=== PATIENT | female | born 1950 | race Caucasian/White ===

== ENCOUNTER → 2016-12-03 17:19 | Outpatient (CLI) | payer MEDICARE | END | disposition home or self-care (01) | LOC: D.MAMMO 15:45 | DX: Z12.31 Encounter for screening mammogram for malignant neoplasm of breast (principal) ==

== ENCOUNTER → 2017-07-08 14:31 | Outpatient (CLI) | payer MEDICARE, MEDICAID | END | disposition home or self-care (01) | LOC: D.MRI 14:31 | DX: M25.561 Pain in right knee (principal) ==

== ENCOUNTER 2017-10-13 15:13 | Observation (INO) | payer MEDICARE, MEDICAID ==
[~2017-10-13] VITALS: Ht 154.9 cm; Wt 59.4 kg
[2017-10-13 16:27] VITALS: BP 150/77; BMI 24.8
[2017-10-13 16:29] LABS: BASOPHILS 0.4 % (0-2); EOSINOPHILS 0 % (0-7); HEMATOCRIT 41.7 % (36.0-48.0); HEMOGLOBIN 14.4 g/dL (12-16); IMMATURE GRANULOCYTES 1.6 % (0-5); LYMPHOCYTES 20.8 % (15-50); MCH 28.3 pg (26.0-34.0); MCHC 34.5 g/dL (31.0-37.0); MCV 82.1 fL (80.0-100.0); MEAN PLATELET VOLUME 9.7 fL (7.4-10.4); MONOCYTES 8.8 % (2-11); NEUTROPHILS 68.4 % (40-80); PLATELET COUNT 201 10x3/uL (130-400); RBC 5.08 10x6/uL (4.00-5.40); RDW 13.4 % (11.5-14.5); WBC 4.9 10x3/uL (4.8-10.8)
[2017-10-13 16:50] LABS: ALBUMIN 3.4 g/dL (3.4-5.0); ALKALINE PHOSPHATASE 280 U/L (46-116); BILIRUBIN - TOTAL 3.02 mg/dL (0.2-1.3); CALC OSMOLALITY 282 mosm/kg (275-300); CALCIUM 8.6 mg/dL (8.5-10.1); CARBON DIOXIDE 36.6 mmol/L (21.0-32.0); CHLORIDE - SERUM 96 mmol/L (98-107); CREATININE - SERUM 0.8 mg/dL (0.6-1.3); GLUCOSE 115 mg/dL (74-106); PROTEIN - SERUM 6.5 g/dL (6.4-8.2); SODIUM 141 mmol/L (136-145); UREA NITROGEN 16 mg/dL (7-18); eGFR NON AFRICAN AMERICAN 75 mL/min (90-120)
[2017-10-13 16:58] LABS: POTASSIUM - SERUM 2.7 mmol/L (3.5-5.1)
[2017-10-13 17:18] LABS: ALT (SGPT) 44416 U/L (10-68)
[2017-10-13 18:32] LABS: ALKALINE PHOSPHATASE 238 U/L (46-116); BILIRUBIN - TOTAL 2.47 mg/dL (0.2-1.3); CALC OSMOLALITY 284 mosm/kg (275-300); CALCIUM 8.3 mg/dL (8.5-10.1); CARBON DIOXIDE 38.6 mmol/L (21.0-32.0); CHLORIDE - SERUM 98 mmol/L (98-107); CREATININE - SERUM 0.8 mg/dL (0.6-1.3); GLUCOSE 121 mg/dL (74-106); PROTEIN - SERUM 6.2 g/dL (6.4-8.2); SODIUM 142 mmol/L (136-145); UREA NITROGEN 15 mg/dL (7-18); eGFR NON AFRICAN AMERICAN 75 mL/min (90-120)
[2017-10-13 18:39] LABS: ALT (SGPT) 3620 U/L (10-68)
[2017-10-13 18:41] LABS: POTASSIUM - SERUM 2.6 mmol/L (3.5-5.1)
[2017-10-13 20:00] VITALS: BP 170/74
[2017-10-13 23:39] LABS: INR 1.24 (0.85-1.17); PROTIME 15.2 SECONDS (11.6-15.0)
[2017-10-13 23:46] LABS: CHOL - HDL RATIO 7.2 ratio (2.3-4.1); LDL-HDL RATIO 3.4 ratio (1.5-3.5)
[2017-10-14] VITALS: BP 154/85
[2017-10-14 04:00] VITALS: BP 181/65
[2017-10-14 05:13] LABS: BASOPHILS 0.8 % (0-2); HEMATOCRIT 35.5 % (36.0-48.0); HEMOGLOBIN 12.2 g/dL (12-16); IMMATURE GRANULOCYTES 3.9 % (0-5); LYMPHOCYTES 30.4 % (15-50); MCHC 34.4 g/dL (31.0-37.0); MCV 81.4 fL (80.0-100.0); MEAN PLATELET VOLUME 9.6 fL (7.4-10.4); MONOCYTES 12.1 % (2-11); NEUTROPHILS 51.8 % (40-80); PLATELET COUNT 175 10x3/uL (130-400); RBC 4.36 10x6/uL (4.00-5.40); RDW 13.5 % (11.5-14.5); WBC 3.9 10x3/uL (4.8-10.8)
[2017-10-14 05:22] LABS: INR 1.32 (0.85-1.17); PROTIME 15.9 SECONDS (11.6-15.0)
[2017-10-14 05:46] LABS: ALBUMIN 2.6 g/dL (3.4-5.0); ALKALINE PHOSPHATASE 200 U/L (46-116); BILIRUBIN - TOTAL 1.98 mg/dL (0.2-1.3); CALCIUM 7.8 mg/dL (8.5-10.1); CARBON DIOXIDE 34.3 mmol/L (21.0-32.0); CHLORIDE - SERUM 102 mmol/L (98-107); CREATININE - SERUM 0.7 mg/dL (0.6-1.3); GLUCOSE 90 mg/dL (74-106); PROTEIN - SERUM 5.6 g/dL (6.4-8.2); SODIUM 143 mmol/L (136-145); eGFR NON AFRICAN AMERICAN 88 mL/min (90-120)
[2017-10-14] MEDS ORDERED: PRINIVIL10 MG PO (05:47)
[2017-10-14] MEDS ORDERED: DESERYL100 MG PO (05:48)
[2017-10-14] MEDS ORDERED: SINGULAIR10 MG PO (05:48)
[2017-10-14] MEDS ORDERED: NEURONTIN 300300 MG PO (05:49)
[2017-10-14] MEDS ORDERED: LIPITOR40 MG PO (05:49)
[2017-10-14] MEDS ORDERED: LINZESS145 MCG (05:50)
[2017-10-14] MEDS ORDERED: COSOPT EYE DROPS5 ML EACH EYE (05:51)
[2017-10-14] MEDS ORDERED: MELATONIN5 MG PO (05:51)
[2017-10-14 06:36] LABS: CALC OSMOLALITY 283 mosm/kg (275-300); UREA NITROGEN 11 mg/dL (7-18)
[2017-10-14 06:37] LABS: ALT (SGPT) 2663 U/L (10-68); POTASSIUM - SERUM 2.5 mmol/L (3.5-5.1)
[2017-10-14 09:13] VITALS: BP 189/70
[2017-10-14 12:33] VITALS: BP 177/81
[2017-10-14 13:33] VITALS: Ht 154.9 cm; Wt 59.4 kg
[2017-10-14 16:47] VITALS: BP 143/89
[2017-10-14 20:00] VITALS: BP 173/74
[2017-10-15] VITALS: BP 191/91
[2017-10-15 05:02] LABS: BASOPHILS 0.2 % (0-2); EOSINOPHILS 2.4 % (0-7); HEMATOCRIT 36.7 % (36.0-48.0); HEMOGLOBIN 12.3 g/dL (12-16); IMMATURE GRANULOCYTES 4.1 % (0-5); LYMPHOCYTES 27.8 % (15-50); MCH 27.6 pg (26.0-34.0); MCHC 33.5 g/dL (31.0-37.0); MCV 82.3 fL (80.0-100.0); MEAN PLATELET VOLUME 9.4 fL (7.4-10.4); MONOCYTES 11.4 % (2-11); NEUTROPHILS 54.1 % (40-80); RBC 4.46 10x6/uL (4.00-5.40); RDW 13.6 % (11.5-14.5)
[2017-10-15 05:17] LABS: PLATELET COUNT 220 10x3/uL (130-400); WBC 5.1 10x3/uL (4.8-10.8)
[2017-10-15 05:29] LABS: ALBUMIN 2.8 g/dL (3.4-5.0); ALKALINE PHOSPHATASE 194 U/L (46-116); CARBON DIOXIDE 31.7 mmol/L (21.0-32.0); CHLORIDE - SERUM 105 mmol/L (98-107); CREATININE - SERUM 0.7 mg/dL (0.6-1.3); GLUCOSE 97 mg/dL (74-106); SODIUM 141 mmol/L (136-145); eGFR NON AFRICAN AMERICAN 88 mL/min (90-120)
[2017-10-15 05:36] LABS: CALC OSMOLALITY 278 mosm/kg (275-300); UREA NITROGEN 6 mg/dL (7-18)
[2017-10-15 05:37] LABS: ALT (SGPT) 1920 U/L (10-68); POTASSIUM - SERUM 2.6 mmol/L (3.5-5.1)
[2017-10-15 06:52] VITALS: BP 190/81
[2017-10-15 09:45] VITALS: BP 175/77
[2017-10-15 12:08] VITALS: BP 154/77
[2017-10-15 15:23] LABS: HEPATITIS C ANTIBODY 0.2 (0.0-0.9)
[2017-10-15 16:41] VITALS: BP 168/74
[2017-10-15 20:00] VITALS: BP 186/78
[2017-10-15 21:08] LABS: EBV - EARLY ANTIGEN AB IGG 11.7 U/mL (0.0-8.9); EBV - NUCLEAR ANTIGEN AB IGG 31.5 U/mL (0.0-17.9); EBV VIRAL CAPSID AB IGM <36.0 U/mL (0.0-35.9)
[2017-10-16] VITALS: BP 174/96
[2017-10-16 04:00] VITALS: BP 162/73
[2017-10-16 04:29] LABS: BASOPHILS 0.2 % (0-2); EOSINOPHILS 2.3 % (0-7); HEMATOCRIT 38.2 % (36.0-48.0); HEMOGLOBIN 12.7 g/dL (12-16); IMMATURE GRANULOCYTES 2.8 % (0-5); MCH 27.9 pg (26.0-34.0); MCHC 33.2 g/dL (31.0-37.0); MEAN PLATELET VOLUME 10.3 fL (7.4-10.4); MONOCYTES 6.4 % (2-11); NEUTROPHILS 68.3 % (40-80); PLATELET COUNT 243 10x3/uL (130-400); RBC 4.55 10x6/uL (4.00-5.40); RDW 14.1 % (11.5-14.5)
[2017-10-16 04:30] LABS: WBC 8.5 10x3/uL (4.8-10.8)
[2017-10-16 04:54] LABS: ALBUMIN 2.6 g/dL (3.4-5.0); ALKALINE PHOSPHATASE 164 U/L (46-116); CALCIUM 8.6 mg/dL (8.5-10.1); CARBON DIOXIDE 27.7 mmol/L (21.0-32.0); CHLORIDE - SERUM 108 mmol/L (98-107); CREATININE - SERUM 0.7 mg/dL (0.6-1.3); GLUCOSE 139 mg/dL (74-106); POTASSIUM - SERUM 3.2 mmol/L (3.5-5.1); PROTEIN - SERUM 5.7 g/dL (6.4-8.2); SODIUM 143 mmol/L (136-145); eGFR NON AFRICAN AMERICAN 88 mL/min (90-120)
[2017-10-16 04:57] LABS: ALT (SGPT) 1270 U/L (10-68); CALC OSMOLALITY 283 mosm/kg (275-300); UREA NITROGEN 3 mg/dL (7-18)
[2017-10-16] MEDS ORDERED: TAMIFLU75 MG PO (07:56)
[2017-10-16] MEDS ORDERED: LEVAQUIN500 MG PO (07:56)
[2017-10-16] MEDS ORDERED: NORVASC2.5 MG PO (07:58)
[2017-10-16 08:38] VITALS: BP 147/65
[2017-10-16 12:09] VITALS: BP 117/64
[2017-10-16 16:20] VITALS: BP 153/64
== END 2017-10-16 18:06 | disposition home or self-care (01) ==
LOC: D.MS 15:13 → OBSVTIME 15:16 → D.MS 10-16 18:06
PROVIDERS: Internal Medicine Gastroenterology; ADMIT Family Medicine
DX: J11.00 Influenza due to unidentified influenza virus with unspecified type of pneumonia (principal); E80.6 Other disorders of bilirubin metabolism; E86.0 Dehydration; K21.9 Gastro-esophageal reflux disease without esophagitis

== ENCOUNTER → 2018-04-20 08:00 | Outpatient (CLI) | payer MEDICARE, MEDICAID ==
[2017-10-14 13:33] VITALS: BMI 24.7
[~2018-04-20 08:00] MED LIST: COSOPT EYE DROPS5 ML EACH EYE; DESERYL100 MG PO; LEVAQUIN500 MG PO; LINZESS145 MCG; LIPITOR40 MG PO; MELATONIN5 MG PO; NEURONTIN 300300 MG PO; NORVASC2.5 MG PO; PRINIVIL10 MG PO; SINGULAIR10 MG PO; TAMIFLU75 MG PO
[2018-04-20 10:38] LABS: ALBUMIN 3.3 g/dL (3.4-5.0); BILIRUBIN - DIRECT 0.12 mg/dL (0.00-0.30); BILIRUBIN - INDIRECT 0.28 mg/dL (0.00-1.00); BILIRUBIN - TOTAL 0.4 mg/dL (0.2-1.3)
== END | disposition home or self-care (01) ==
LOC: D.US 04-15 09:00 → D.LAB 04-15 10:00 → D.US 08:00
PROVIDERS: Internal Medicine Gastroenterology
DX: K76.0 Fatty (change of) liver, not elsewhere classified (principal)

== ENCOUNTER → 2018-06-11 13:59 | Outpatient (CLI) | payer MEDICARE, MEDICAID ==
[2017-10-14 13:33] VITALS: BMI 24.7
== END | disposition home or self-care (01) ==
LOC: D.CT 10:30
DX: R10.11 Right upper quadrant pain (principal)

== ENCOUNTER → 2018-09-15 10:50 | Outpatient (CLI) | payer MEDICARE, MEDICAID ==
[2017-10-14 13:33] VITALS: BMI 24.7
== END | disposition home or self-care (01) ==
LOC: D.CT 10:50
DX: R93.89 Abnormal findings on diagnostic imaging of other specified body structures (principal)

== ENCOUNTER → 2018-11-19 12:54 | Outpatient (CLI) | payer MEDICARE, MEDICAID ==
[2017-10-14 13:33] VITALS: BMI 24.7
[2018-11-19 13:41] LABS: ALBUMIN 3.3 g/dL (3.4-5.0); BILIRUBIN - DIRECT 0.17 mg/dL (0.00-0.30); BILIRUBIN - INDIRECT 0.29 mg/dL (0.00-1.00); BILIRUBIN - TOTAL 0.46 mg/dL (0.2-1.3); PROTEIN - SERUM 6.7 g/dL (6.4-8.2)
== END | disposition home or self-care (01) ==
LOC: D.LAB 10-22 09:30 → D.US 10-22 09:30 → D.LAB 10-22 10:00
PROVIDERS: Internal Medicine Gastroenterology
DX: K76.0 Fatty (change of) liver, not elsewhere classified (principal)

== ENCOUNTER → 2019-05-05 08:49 | Outpatient (CLI) | payer MEDICARE, MEDICAID ==
[2017-10-14 13:33] VITALS: BMI 24.7
[2019-05-05 09:45] LABS: ALBUMIN 3.3 g/dL (3.4-5.0); BILIRUBIN - DIRECT 0.26 mg/dL (0.00-0.30); BILIRUBIN - INDIRECT 0.51 mg/dL (0.00-1.00); BILIRUBIN - TOTAL 0.77 mg/dL (0.2-1.3); PROTEIN - SERUM 7.3 g/dL (6.4-8.2)
== END | disposition home or self-care (01) ==
LOC: D.US 08:49
PROVIDERS: ATTEND Internal Medicine Gastroenterology
DX: K76.0 Fatty (change of) liver, not elsewhere classified (principal)

== ENCOUNTER 2019-05-16 17:19 | Inpatient (IN) | payer MEDICARE, MEDICAID ==
[~2019-05-16] VITALS: Ht 154.9 cm; Wt 63.2 kg
[2019-05-16 18:17] LABS: BASOPHILS 0.2 % (0-2); EOSINOPHILS 1.2 % (0-7); HEMATOCRIT 37.1 % (36.0-48.0); HEMOGLOBIN 12.6 g/dL (12-16); IMMATURE GRANULOCYTES 0.4 % (0-5); LYMPHOCYTES 13.9 % (15-50); MCV 79.4 fL (80.0-100.0); MEAN PLATELET VOLUME 8.8 fL (7.4-10.4); MONOCYTES 4.9 % (2-11); NEUTROPHILS 79.4 % (40-80); PLATELET COUNT 258 10x3/uL (130-400); RBC 4.67 10x6/uL (4.00-5.40); RDW 14.2 % (11.5-14.5)
[2019-05-16 18:33] VITALS: BP 149/65; Ht 154.9 cm; Wt 63.2 kg
[2019-05-16 18:43] LABS: ALBUMIN 3.1 g/dL (3.4-5.0); ANION GAP 9.9 mmol/L (8-16); BILIRUBIN - TOTAL 0.68 mg/dL (0.2-1.3); CALCIUM 8.3 mg/dL (8.5-10.1); CARBON DIOXIDE 32.8 mmol/L (21.0-32.0); CREATININE - SERUM 0.9 mg/dL (0.6-1.3); PROTEIN - SERUM 7.1 g/dL (6.4-8.2); THYROID STIMULATING HORMONE 4.23 uIU/mL (0.36-3.74)
[2019-05-16 18:50] LABS: POTASSIUM - SERUM 2.7 mmol/L (3.5-5.1)
[2019-05-16 20:19] VITALS: BP 142/60
--- NOTE | 2019-05-16 22:45 | NUR ---
IV STARTED BY TOR IN PT'S RT FOREARM.22G
[2019-05-17 00:29] VITALS: BP 150/59
--- NOTE | 2019-05-17 01:03 | NUR ---
I have reviewed this patient and I concur with the Shift Assessment completed by the Licensed Practical Nurse today this shift.
--- NOTE | 2019-05-17 02:42 | NUR ---
REST QUIETLY IN BED. BED LOW CALL LIGHT IN REACH.
[2019-05-17 04:31] VITALS: BP 169/66
[2019-05-17 06:22] LABS: BASOPHILS 0.1 % (0-2); EOSINOPHILS 0.9 % (0-7); HEMATOCRIT 34.3 % (36.0-48.0); HEMOGLOBIN 11.5 g/dL (12-16); IMMATURE GRANULOCYTES 0.7 % (0-5); LYMPHOCYTES 13.3 % (15-50); MCH 26.5 pg (26.0-34.0); MCHC 33.5 g/dL (31.0-37.0); MEAN PLATELET VOLUME 9.3 fL (7.4-10.4); MONOCYTES 3.8 % (2-11); NEUTROPHILS 81.2 % (40-80); PLATELET COUNT 241 10x3/uL (130-400); RBC 4.34 10x6/uL (4.00-5.40); RDW 14.1 % (11.5-14.5); WBC 10.6 10x3/uL (4.8-10.8)
[2019-05-17 06:50] LABS: ALBUMIN 2.8 g/dL (3.4-5.0); ANION GAP 8.5 mmol/L (8-16); BILIRUBIN - TOTAL 0.85 mg/dL (0.2-1.3); CARBON DIOXIDE 32.4 mmol/L (21.0-32.0); CREATININE - SERUM 0.9 mg/dL (0.6-1.3); MAGNESIUM - SERUM 1.7 mg/dL (1.8-2.4); PHOSPHOROUS 2.6 mg/dL (2.5-4.9); PROTEIN - SERUM 6.5 g/dL (6.4-8.2)
[2019-05-17 06:56] LABS: POTASSIUM - SERUM 2.9 mmol/L (3.5-5.1)
[2019-05-17 08:32] VITALS: BP 165/64
--- NOTE | 2019-05-17 09:00 | NUR ---
ASSESSMENT PER FLOW SHEET. PT IS WITHOUT DISTRESS.FALL PREVENTION IN PLACE WITH BED ALARM.MONITOR FOR NEEDS
[2019-05-17 10:19] LABS: CKMB 1.3 U/L (0.0-3.6); CREATINE KINASE 112 UL (21-215); TROPONIN-I < 0.017 ng/mL (0.000-0.060)
[2019-05-17 10:31] LABS: POTASSIUM - SERUM 2.9 mmol/L (3.5-5.1)
[2019-05-17 17:13] LABS: CKMB 1.6 U/L (0.0-3.6); CREATINE KINASE 143 UL (21-215); TROPONIN-I 0.019 ng/mL (0.000-0.060)
[2019-05-17 17:33] VITALS: BP 152/65
--- NOTE | 2019-05-17 17:40 | NUR ---
OT NOTE: PT COMPLETED DYNAMIC STANDING BALANCE WITH SBA. PT COMPLETED GROOMING WITH SET UP. THANK YOU, BALAJI ZAVALETA
[2019-05-17 18:42] LABS: APPEARANCE CLEAR (CLEAR); BILIRUBIN NEGATIVE (NEGATIVE); COLOR YELLOW (YELLOW); GLUCOSE NEGATIVE (NEGATIVE); KETONE NEGATIVE (NEGATIVE); NITRITE NEGATIVE (NEGATIVE); PROTEIN NEGATIVE (NEGATIVE); UROBILINOGEN NORMAL (NORMAL)
[2019-05-17 18:43] LABS: RED CELLS - URINE OCC /hpf (0-5); WHITE CELLS - URINE OCC /hpf (0-5)
--- NOTE | 2019-05-17 18:56 | NUR ---
REMAINS WITHOUT DISTRESS,WITHOUT CHANGE.CONT PLAN OF CARE
--- NOTE | 2019-05-17 19:15 | NUR ---
A&O X 4. REPORTS BLINDNESS IN RIGHT EYE. REPORTS OCCASIONAL HEADACHE, BUT STATES SHE CURRENTLY FEELS FINE. DENIES NEEDS AT THIS TIME. WILL CONTINUE TO MONITOR.
[2019-05-17 20:19] VITALS: BP 157/65
[2019-05-18 00:09] LABS: CKMB 2.2 U/L (0.0-3.6); CREATINE KINASE 186 UL (21-215); TROPONIN-I 0.033 ng/mL (0.000-0.060)
[2019-05-18 00:58] VITALS: BP 159/79
--- NOTE | 2019-05-18 03:28 | NUR ---
I have reviewed this patient and I concur with the Shift Assessment completed by the Licensed Practical Nurse today this shift.
[2019-05-18 04:54] VITALS: BP 159/59
[2019-05-18 06:31] LABS: BASOPHILS 0.2 % (0-2); EOSINOPHILS 1.1 % (0-7); HEMATOCRIT 34.7 % (36.0-48.0); HEMOGLOBIN 11.7 g/dL (12-16); IMMATURE GRANULOCYTES 1.2 % (0-5); LYMPHOCYTES 14.9 % (15-50); MCHC 33.7 g/dL (31.0-37.0); MCV 80.1 fL (80.0-100.0); MONOCYTES 5.1 % (2-11); NEUTROPHILS 77.5 % (40-80); PLATELET COUNT 241 10x3/uL (130-400); RBC 4.33 10x6/uL (4.00-5.40); RDW 14.6 % (11.5-14.5); WBC 8.8 10x3/uL (4.8-10.8)
[2019-05-18 07:04] LABS: ALBUMIN 2.8 g/dL (3.4-5.0); ALKALINE PHOSPHATASE 112 U/L (46-116); ALT (SGPT) 25 U/L (10-68); BILIRUBIN - TOTAL 0.67 mg/dL (0.2-1.3); CALCIUM 7.8 mg/dL (8.5-10.1); CARBON DIOXIDE 26.3 mmol/L (21.0-32.0); CHLORIDE - SERUM 109 mmol/L (98-107); CHOL - HDL RATIO 3.6 ratio (2.3-4.1); CHOLESTEROL, TOTAL 131 mg/dL (0-200); CREATININE - SERUM 0.8 mg/dL (0.6-1.3); GLUCOSE 129 mg/dL (74-106); HDL CHOLESTEROL 36 mg/dL (32-96); LDL CHOLESTEROL 69 mg/dL (0-100); LDL-HDL RATIO 1.9 ratio (1.5-3.5); MAGNESIUM - SERUM 1.6 mg/dL (1.8-2.4); PROTEIN - SERUM 6.4 g/dL (6.4-8.2); SODIUM 144 mmol/L (136-145); TRIGLYCERIDE 134 mg/dL (30-200); eGFR NON AFRICAN AMERICAN 75 mL/min (90-120)
[2019-05-18 07:07] LABS: CALC OSMOLALITY 285 mosm/kg (275-300); PHOSPHOROUS 1.8 mg/dL (2.5-4.9); POTASSIUM - SERUM 3.5 mmol/L (3.5-5.1); UREA NITROGEN 4 mg/dL (7-18)
[2019-05-18 08:58] VITALS: BP 181/84
[2019-05-18] MEDS ORDERED: ASPIRIN81 MG PO (12:11)
--- NOTE | 2019-05-18 13:09 | MORECARE ---
CASE MANAGEMENT DISCHARGE SUMMARY PATIENT: AGNES MELENDEZ LEE ANN UNIT: [id number] ADM DATE: 05/17/19 AGE: 69 : 48 SEX: F ROOM/BED: D.2227 AUTHOR: KARINE KAT PHYSICIAN: REFERRING PHYSICIAN: BERNY VIGIL DO DATE OF SERVICE: 05/18/19 Discharge Plan Patient Name: AGNES [facility]ELENDEZ [facility] [facility] 1950 Planned Disposition: Home Anticipated Discharge Date: 05/18/19 Discharge Date: Expected LOS: 1 Initial Reviewer: [email or web address] Initial Review Date: 05/18/2019 Generated: 05/18/19 2:09 pm Patient Name: AGNES MELENDEZ Page [id number] at 1309 All edits/amendments must be made on the electronic document DICTATION DATE: 05/18/19 1308 MAINSPRING FORMER: LOPEZ 05/18/19 1308 RPT#: [id number] DC DATE: STATUS: ADM IN [facility] [address] [place] [address] END OF REPORT
--- NOTE | 2019-05-18 13:16 | MORECARE ---
CASE MANAGEMENT DISCHARGE SUMMARY PATIENT: AGNES MELENDEZ UNIT: [id number] ADM DATE: 05/17/19 AGE: 69 : 48 SEX: F ROOM/BED: D.2227 AUTHOR: NORTH,DOC PHYSICIAN: REFERRING PHYSICIAN: BERNY VIGIL DO DATE OF SERVICE: 05/18/19 Discharge Plan Patient Name: AGNES MELENDEZ Facility: [facility]:[place] : 1950 Planned Disposition: Home Anticipated Discharge Date: 05/18/19 Discharge Date: Expected LOS: 1 Initial Reviewer: [email or web address] Initial Review Date: 05/18/2019 Generated: 05/18/19 2:16 pm Comments DCP- Discharge Planning Updated by [email or web address]: Lesvia Ramírez on 05/18/19 12:[address] Patient Name: AGNES MELENDEZ Admission Status: Urgent Accout number: [id number] Admission Date: 05-17-2019 : 1950 Admission Diagnosis: Attending: BERNY VIGIL Current LOS: 1 Anticipated DC Date: 05-18-2019 Planned Disposition: Home Primary Insurance: [employer] CHOICE [facility] CM met with patient to complete initial dc planning assessment. CM educated patient on the CM role and verbal consent given by patient to complete assessment. Patient lives at the [facility], alone. At discharge patient plans to return and feels this is a safe discharge. CM discussed availability of home health, rehab services, and medical equipment. Patient denied known discharge needs at this time. She states her son will pick her up today. She no longer drives, but takes the bus or [employer] transportation when needed. CM will continue to follow and will assist as needed with dc plans/needs. Discharge Planning Comments: Fish Bait Picker: Lesvia Ramírez DCPIA - Discharge Planning Initial Assessment Updated by [email or web address]: Lesvia Ramírez on 05/18/19 1:09 pm * Is the patient Alert and Oriented? Yes * How many steps to enter\exit or inside your home? 0/elevator * PCP Dr. Vigil * Preadmission Environment Home Alone * ADLs Independent * Equipment Cane Other * Other Equipment blood pressure machine * List name and contact numbers for known caregivers / representatives who currently or will assist patient after discharge: Paul Sanchez - violeta - [phone] * Verbal permission to speak to the caregivers and representatives has been obtained from the patient. Yes * Community resources currently utilized None * Additional services required to return to the preadmission environment? No * Can the patient safely return to the preadmission environment? Yes * Has this patient been hospitalized within the prior 30 days at any hospital? No Last DP export: 05/18/19 12:09 p Patient Name: AGNES MELENDEZ Page [id number] at 1316 All edits/amendments must be made on the electronic document DICTATION DATE: 05/18/19 131 SIDEWALK REPAIRER: LOPEZ 05/18/19 1315 RPT#: [id number] DC DATE: STATUS: ADM IN [facility] [address] [place] [address] END OF REPORT
--- NOTE | 2019-05-18 15:12 | NUR ---
OT NOTE: PT PERFORMING WELL. ABLE TO PERFORM FULL SHOWER AFTER SET UP OF TOWELS AND TOILETRIES. STANDING BALANCE GOOD WHEN DRYING OFF; GROOMING INDEP FOLLOWING SHOWER. IN ROOM AMBULATION WITHOUT ASSIST. GOOD BALANCE NOTED. DANNY GIORDANO, OTR/L
--- NOTE | 2019-05-20 16:49 | MORECARE ---
CASE MANAGEMENT DISCHARGE SUMMARY PATIENT: AGNES MELENDEZ UNIT: [id number] ADM DATE: 05/17/19 AGE: 69 : 48 SEX: F ROOM/BED: D.2227 AUTHOR: NORTH,DOC PHYSICIAN: REFERRING PHYSICIAN: BERNY VIGIL DO DATE OF SERVICE: 05/20/19 Discharge Plan Patient Name: AGNES MELENDEZ Facility: [facility]:[place] : 1950 Planned Disposition: Home Anticipated Discharge Date: 05/18/19 Discharge Date: 05/18/2019 Expected LOS: 1 Initial Reviewer: [email or web address] Initial Review Date: 05/18/2019 Generated: 05/20/19 5:49 pm Comments DCP- Discharge Planning Updated by [email or web address]: Lesvia Ramírez on 05/18/19 12:[address] Patient Name: AGNES MELENDEZ Admission Status: Urgent Accout number: [id number] Admission Date: 05-17-2019 : 1950 Admission Diagnosis: Attending: BERNY VIGIL Current LOS: 1 Anticipated DC Date: 05-18-2019 Planned Disposition: Home Primary Insurance: [employer] CHOICE [facility] CM met with patient to complete initial dc planning assessment. CM educated patient on the CM role and verbal consent given by patient to complete assessment. Patient lives at the [facility], alone. At discharge patient plans to return and feels this is a safe discharge. CM discussed availability of home health, rehab services, and medical equipment. Patient denied known discharge needs at this time. She states her son will pick her up today. She no longer drives, but takes the bus or [place] transportation when needed. CM will continue to follow and will assist as needed with dc plans/needs. Discharge Planning Comments: Sales Representative Health Insurance: Lesvia Ramírez DCPIA - Discharge Planning Initial Assessment Updated by [email or web address]: Lesvia Ramírez on 05/18/19 1:09 pm * Is the patient Alert and Oriented? Yes * How many steps to enter\exit or inside your home? 0/elevator * PCP Dr. Vigil * Preadmission Environment Home Alone * ADLs Independent * Equipment Cane Other * Other Equipment blood pressure machine * List name and contact numbers for known caregivers / representatives who currently or will assist patient after discharge: Paul Sanchez - violeta - [phone] * Verbal permission to speak to the caregivers and representatives has been obtained from the patient. Yes * Community resources currently utilized None * Additional services required to return to the preadmission environment? No * Can the patient safely return to the preadmission environment? Yes * Has this patient been hospitalized within the prior 30 days at any hospital? No Last DP export: 05/18/19 12:16 p Patient Name: AGNES MELENDEZ Page 17573 at 1649 All edits/amendments must be made on the electronic document DICTATION DATE: 05/20/191648 RV SERVICER: LOPEZ 05/20/191648 RPT#: [id number] DC DATE:05/18/19 STATUS: DIS IN [facility] [address] [place] [address] END OF REPORT
== END 2019-05-18 15:08 | disposition home or self-care (01) | DRG 103 ==
LOC: D.MS 17:19 → OBSVTIME 17:20 → D.MS 05-17 12:51
PROVIDERS: Emergency Medicine; ADMIT Family Medicine; ATTEND Family Medicine
DX: R51 Headache (principal); E86.0 Dehydration; E87.6 Hypokalemia; E83.42 Hypomagnesemia; K21.9 Gastro-esophageal reflux disease without esophagitis; J45.909 Unspecified asthma, uncomplicated; M54.5 Low back pain

== ENCOUNTER 2019-08-04 10:00 | Outpatient (CLI) | payer MEDICARE, MEDICAID ==
[2019-05-16 18:33] VITALS: BMI 26.3
[~2019-08-04 10:00] MED LIST changes: +ASPIRIN81 MG PO
== END 2019-08-04 11:00 | disposition home or self-care (01) ==
LOC: D.MAMMO 10:00
PROVIDERS: ATTEND Family Medicine
DX: Z12.31 Encounter for screening mammogram for malignant neoplasm of breast (principal)

== ENCOUNTER 2019-11-08 19:30 | Outpatient (CLI) | payer MEDICARE, MEDICAID ==
[2019-05-16 18:33] VITALS: BMI 26.3
== END 2019-11-08 23:59 | disposition home or self-care (01) ==
LOC: D.MAMMO 19:30
PROVIDERS: ATTEND Family Medicine
DX: R92.8 Other abnormal and inconclusive findings on diagnostic imaging of breast (principal)

== ENCOUNTER → 2019-11-09 10:03 | Outpatient (CLI) | payer MEDICARE, MEDICAID ==
[2019-05-16 18:33] VITALS: BMI 26.3
[2019-11-09 11:47] LABS: ALBUMIN 3.1 g/dL (3.4-5.0); BILIRUBIN - DIRECT 0.05 mg/dL (0.00-0.30); BILIRUBIN - INDIRECT 0.25 mg/dL (0.00-1.00); BILIRUBIN - TOTAL 0.3 mg/dL (0.2-1.3); PROTEIN - SERUM 6.9 g/dL (6.4-8.2)
== END | disposition home or self-care (01) ==
LOC: D.LAB 10:03 → D.US 10:30
PROVIDERS: ATTEND Internal Medicine Gastroenterology
DX: K76.0 Fatty (change of) liver, not elsewhere classified (principal)

== ENCOUNTER 2020-01-21 18:02 | Emergency (ER) | payer MEDICARE, MEDICAID ==
[~2020-01-21] VITALS: Ht 154.9 cm; Wt 6.1 kg
[2020-01-21 18:06] VITALS: Ht 154.9 cm; Wt 6.1 kg
[2020-01-21 19:06] VITALS: BP 125/48
== END 2020-01-21 19:08 | disposition home or self-care (01) ==
LOC: D.ER 18:02
DX: S63.501A Unspecified sprain of right wrist, initial encounter (principal); S46.911A Strain of unspecified muscle, fascia and tendon at shoulder and upper arm level, right arm, initial encounter; X58.XXXA Exposure to other specified factors, initial encounter; M19.91 Primary osteoarthritis, unspecified site; M54.9 Dorsalgia, unspecified

== ENCOUNTER 2020-03-27 08:00 | Inpatient (IN) | payer MEDICARE, MEDICAID ==
[~2020-03-27] VITALS: Ht 154.9 cm; Wt 62.4 kg
[2020-03-27 13:26] VITALS: Ht 154.9 cm; Wt 62.4 kg
[2020-03-30 09:32] VITALS: BP 163/50
[2020-03-30] MEDS ORDERED: BACTRIM DS TAB1 EAC1 PO (11:58)
== END 2020-03-30 14:40 | disposition home or self-care (01) | DRG 122 ==
LOC: D.ER 08:00 → D.M2 10:25
PROVIDERS: ADMIT Emergency Medicine; ATTEND Emergency Medicine
DX: H05.011 Cellulitis of right orbit (principal); D64.9 Anemia, unspecified; H40.9 Unspecified glaucoma; H26.9 Unspecified cataract; I10 Essential (primary) hypertension; G62.9 Polyneuropathy, unspecified; H04.301 Unspecified dacryocystitis of right lacrimal passage; B95.61 Methicillin susceptible Staphylococcus aureus infection as the cause of diseases classified elsewhere

== ENCOUNTER → 2020-05-09 08:57 | Outpatient (CLI) | payer MEDICARE, MEDICAID ==
[2020-03-27 13:26] VITALS: BMI 26.5
[~2020-05-09 08:57] MED LIST changes: +BACTRIM DS TAB1 EAC1 PO
--- NOTE | 2020-05-11 12:30 | EC ---
PATIENT:AGNES MELENDEZ DATE OF SERVICE: 05/09/20 SEX: F MEDICAL RECORD: [id number] DATE OF : [birth year] LOCATION:[facility] AGE OF PATIENT: 70 ADMISSION DATE: 05/09/20 REFERRING PHYSICIAN: INTERPRETING PHYSICIAN: SAMMI ORDONEZ MD ECHOCARDIOGRAM REPORT ECHO CHARGES 4 ECHO COMPLETE Date: 05/09/20 CLINICAL DIAGNOSIS: MENDEZ ECHOCARDIOGRAPHIC MEASUREMENTS (adult normal given) AC root (d.<3.7cm) 2.6 cm LV Septum d (<1.2 cm> 0.6 cm Valve Excursion 1.7 cm LV Septum (systole) 1.2 cm Left Atria (s.<4.0cm> 3.0 cm LVPW d(<1.2cm) 0.9 cm RV (d.<2.3cm) 2.6 cm LVPW (sytole) 1.2 cm LV diastole(<5.6CM) 5.4 cm MV E-F(>70mm/sec) cm LV systole 3.7 cm LVOT Diameter 1.7 cm MV exc.(>10mm) cm Est.ejection fraction (50-75%) % DOPPLER: LVIT cm/sec A 97 cm/sec E 101 cm/sec LA cm/sec RVSP 28.4 mmHg LVOT 73 cm/sec AOP1/2T m/s Asc. Ao 93 cm/sec RVOT 54 cm/sec RA cm/sec PA 62 cm/sec AV Gradient Peak 3.5 mmHg AV Mean 2.0 mmHg AV Area 2.0 cm MV Gradient Peak 4.9 mmHg MV Mean 1.9 mmHg MV Area cm COMMENTS: Weigher Production: Ml [facility] Motor Coach Tour Operator: 3 Dr. Darling TAPE# PACS Pericardial Effusion N DATE OF SERVICE: Adequate 2D, color flow imaging, spectral Doppler, and M-Mode. No LVH. LV internal dimensions are normal. Wall motion is normal. EF is greater than or equal to 55%. Aortic valve is tricuspid. No evidence of stenosis by Doppler interrogation. Left atrium is normal. Mitral valve shows no prolapse. Trace MR. Right-sided chambers are grossly normal. Trace TR. TRANSINT:[id number] Voice Confirmation ID: [id number] DOCUMENT ID: [id number] ECHOCARDIOGRAM REPORT [id number] AGNES MELENDEZ SAMMI ORDONEZ MD at 1230 CC: [id number] DICTATION DATE: 05/10/20 1409 PODIATRIC MEDICINE DOCTOR: 05/10/20 1621 DEP CLI 05/09/20 [id number] [place] [address]
== END | disposition home or self-care (01) ==
LOC: D.ECHO 08:57
PROVIDERS: ATTEND Family Medicine
DX: R06.09 Other forms of dyspnea (principal)

== ENCOUNTER 2020-06-25 13:15 | Emergency (ER) | payer MEDICARE, MEDICAID ==
[~2020-06-25] VITALS: Ht 154.9 cm; Wt 58.6 kg
[2020-06-25 13:16] VITALS: Ht 154.9 cm; Wt 58.6 kg
[2020-06-25 14:25] LABS: CALC OSMOLALITY 276 mosm/kg (275-300); CALCIUM 8.7 mg/dL (8.5-10.1); CHLORIDE - SERUM 104 mmol/L (98-107); CREATININE - SERUM 1.1 mg/dL (0.6-1.3); GLUCOSE 110 mg/dL (74-106); POTASSIUM - SERUM 3.1 mmol/L (3.5-5.1); SODIUM 139 mmol/L (136-145); UREA NITROGEN 8 mg/dL (7-18); eGFR NON AFRICAN AMERICAN 52 mL/min (90-120)
[2020-06-25 14:35] LABS: ALBUMIN 3.3 g/dL (3.4-5.0); ALKALINE PHOSPHATASE 133 U/L (30-120); ALT (SGPT) 22 U/L (10-68); AMYLASE - SERUM 30 U/L (25-115); BILIRUBIN - TOTAL 0.48 mg/dL (0.2-1.3); LIPASE 85 U/L (73-393); PROTEIN - SERUM 7.4 g/dL (6.4-8.2); TROPONIN-I < 0.017 ng/mL (0.000-0.060)
[2020-06-25 14:43] LABS: BASOPHILS 0.4 % (0-2); EOSINOPHILS 0.6 % (0-7); HEMATOCRIT 36.9 % (36.0-48.0); HEMOGLOBIN 11.9 g/dL (12-16); IMMATURE GRANULOCYTES 0.6 % (0-5); LYMPHOCYTES 10.9 % (15-50); MCH 25.8 pg (26.0-34.0); MCHC 32.2 g/dL (31.0-37.0); MCV 79.9 fL (80.0-100.0); MEAN PLATELET VOLUME 8.8 fL (7.4-10.4); MONOCYTES 5.1 % (2-11); NEUTROPHILS 82.4 % (40-80); RBC 4.62 10x6/uL (4.00-5.40); RDW 15.5 % (11.5-14.5); WBC 10.9 10x3/uL (4.8-10.8)
[2020-06-25 15:01] LABS: PLATELET COUNT 338 10x3/uL (130-400)
[2020-06-25 17:05] LABS: BILIRUBIN NEGATIVE (NEGATIVE); KETONE NEGATIVE (NEGATIVE); NITRITE NEGATIVE (NEGATIVE); UROBILINOGEN NORMAL (NORMAL)
[2020-06-25 17:06] LABS: BACTERIA MODERATE /hpf (NONE SEEN); EPITHELIAL CELLS 0-5 /hpf (0-5); RED CELLS - URINE OCC /hpf (0-5)
[2020-06-25] MEDS ORDERED: MACROBID100 MG PO (17:10)
[2020-06-25] MEDS ORDERED: KEFLEX500 MG PO (17:10)
[2020-06-25] MEDS ORDERED: ZOFRAN ODT4 MG/UDTAB PO (17:14)
[2020-06-25 17:23] VITALS: BP 135/56
== END 2020-06-25 17:23 | disposition home or self-care (01) ==
LOC: D.ER 13:15
PROVIDERS: Emergency Medicine
DX: R11.2 Nausea with vomiting, unspecified (principal); E87.6 Hypokalemia; N39.0 Urinary tract infection, site not specified; I10 Essential (primary) hypertension; J45.909 Unspecified asthma, uncomplicated; G62.9 Polyneuropathy, unspecified

== ENCOUNTER → 2020-07-23 11:00 | Outpatient (CLI) | payer MEDICARE, MEDICAID ==
[2020-06-25 13:16] VITALS: BMI 24.4
[~2020-07-23 11:00] MED LIST changes: +KEFLEX500 MG PO; +MACROBID100 MG PO; +ZOFRAN ODT4 MG/UDTAB PO
== END | disposition home or self-care (01) ==
LOC: D.US 11:00
PROVIDERS: ATTEND Family Medicine
DX: R74.8 Abnormal levels of other serum enzymes (principal)

== ENCOUNTER → 2020-12-25 10:23 | Outpatient (CLI) | payer MEDICARE, MEDICAID ==
[2020-06-25 13:16] VITALS: BMI 24.4
[2020-12-25 11:18] LABS: ALBUMIN 2.5 g/dL (3.4-5.0); BILIRUBIN - DIRECT 0.15 mg/dL (0.00-0.30); BILIRUBIN - INDIRECT 0.29 mg/dL (0.00-1.00); BILIRUBIN - TOTAL 0.44 mg/dL (0.2-1.3); PROTEIN - SERUM 6.3 g/dL (6.4-8.2)
== END | disposition home or self-care (01) ==
LOC: D.LAB 10:15 → D.US 10:30
PROVIDERS: ATTEND Internal Medicine Gastroenterology
DX: K76.0 Fatty (change of) liver, not elsewhere classified (principal)

== ENCOUNTER 2021-01-05 14:51 | Emergency (ER) | payer MEDICARE, MEDICAID ==
[~2021-01-05] VITALS: Ht 154.9 cm; Wt 52.3 kg
[2021-01-05 14:56] VITALS: Ht 154.9 cm; Wt 52.3 kg
[2021-01-05] MEDS ORDERED: TORADOL10 MG PO (16:25)
[2021-01-05 16:34] VITALS: BP 155/63
== END 2021-01-05 18:37 | disposition home or self-care (01) ==
LOC: D.ER 14:51
DX: S00.93XA Contusion of unspecified part of head, initial encounter (principal); S46.912A Strain of unspecified muscle, fascia and tendon at shoulder and upper arm level, left arm, initial encounter; I10 Essential (primary) hypertension; J45.909 Unspecified asthma, uncomplicated; G62.9 Polyneuropathy, unspecified; W01.0XXA Fall on same level from slipping, tripping and stumbling without subsequent striking against object, initial encounter; Y93.9 Activity, unspecified; Y92.9 Unspecified place or not applicable

== ENCOUNTER → 2021-02-04 10:43 | Outpatient (CLI) | payer MEDICARE, MEDICAID ==
[2021-01-05 14:56] VITALS: BMI 21.7
[~2021-02-04 10:43] MED LIST changes: +TORADOL10 MG PO
== END | disposition home or self-care (01) ==
LOC: D.CT 01-28 11:00
PROVIDERS: ATTEND Family Medicine
DX: R91.1 Solitary pulmonary nodule (principal)

== ENCOUNTER 2021-03-17 14:12 | Emergency (ER) | payer MEDICARE, MEDICAID ==
[~2021-03-17] VITALS: Ht 154.9 cm; Wt 53.6 kg
[2021-03-17 14:26] VITALS: BP 132/93; Ht 154.9 cm; Wt 53.6 kg
[2021-03-17 15:15] LABS: BASOPHILS 0.6 % (0-2); EOSINOPHILS 0.7 % (0-7); HEMATOCRIT 40.8 % (36.0-48.0); HEMOGLOBIN 13.5 g/dL (12-16); LYMPHOCYTES 11.2 % (15-50); MCH 28.1 pg (26.0-34.0); MCHC 33.1 g/dL (31.0-37.0); MCV 84.9 fL (80.0-100.0); MEAN PLATELET VOLUME 6.8 fL (7.4-10.4); MONOCYTES 4.4 % (2-11); NEUTROPHILS 83.1 % (40-80); PLATELET COUNT 332 10x3/uL (130-400); RBC 4.81 10x6/uL (4.00-5.40); RDW 13.8 % (11.5-14.5)
[2021-03-17 15:25] LABS: ANION GAP 10.6 mmol/L (8-16); CALCIUM 9.2 mg/dL (8.5-10.1); CARBON DIOXIDE 32.6 mmol/L (21.0-32.0); POTASSIUM - SERUM 3.2 mmol/L (3.5-5.1)
[2021-03-17 15:27] LABS: ALBUMIN 3.4 g/dL (3.4-5.0); BILIRUBIN - TOTAL 0.42 mg/dL (0.2-1.3); PROTEIN - SERUM 7.5 g/dL (6.4-8.2)
== END 2021-03-17 18:23 | disposition home or self-care (01) ==
LOC: D.ER 14:12
PROVIDERS: Family Medicine
DX: S22.089A Unspecified fracture of T11-T12 vertebra, initial encounter for closed fracture (principal); M54.5 Low back pain; M79.10 Myalgia, unspecified site; M54.6 Pain in thoracic spine; I10 Essential (primary) hypertension; G62.9 Polyneuropathy, unspecified; J45.909 Unspecified asthma, uncomplicated; W20.8XXA Other cause of strike by thrown, projected or falling object, initial encounter; Y93.9 Activity, unspecified; Y92.9 Unspecified place or not applicable